=== PATIENT | male | born 1980 | race Caucasian/White ===

== ENCOUNTER 2017-10-09 15:43 | Emergency (ER) | payer MEDICAID ==
[~2017-10-09] VITALS: Ht 180.3 cm; Wt 83.9 kg
[2017-10-09] MEDS ORDERED: KETOROLAC TROMETHAMINE 30 MG INJ IM ONE (16:00)
[2017-10-09] MEDS ORDERED: KETOROLAC TROMETHAMINE 30 MG INJ ONE (16:09)
--- NOTE | 2017-10-09 16:18 | NUR ---
MSE COMPLETED, MEDICATION ADMINISTERED, ACI/RX X3 GIVEN, PT AMBULATED WO DIFF/TOOK ALL BELONGINGS.
[2017-10-09 16:20] VITALS: BP 118/90
== END 2017-10-09 16:20 | disposition home or self-care (01) ==
LOC: ER 15:46
DX: M54.30 Sciatica, unspecified side (principal)
CPT/HCPCS: A4663; J1885